=== PATIENT | male | born 1960 | race Two or more races ===

== ENCOUNTER → 2023-03-04 | Outpatient (CLI) | payer OTHER, SELFPAY ==
--- NOTE | 2023-03-04 08:00 | PROSBIL_PTH ---
PATHOLOGY RESULTS PATIENT: CHRISTOPHER GONZALES LOC: [facility] U#:[id number] AGE/SX: 62/M ROOM: RE03/04/[address]: Dr. Víctor Zepeda MD : 1960 BED: DIS: 03/04/2023 SPEC #: [id number] RECD: 03/05/23 08:48 STATUS: SYLVIA YVONNE #: [id number] TIMBO: 03/04/23 08:[address]: Víctor Zepeda DEPT: SURGICAL PATHOLOGY RECD BY: Samantha Qiu ENTERED: 03/05/23 08:48 SP TYPE: PROST BX JAZMINE DR: ERIS Lopez Tissues: PROSTATE RIGHT PROSTATE RIGHT PROSTATE RIGHT PROSTATE LEFT PROSTATE LEFT PROSTATE LEFT Procedures: PROSTATE BX HEADER OPERATION: Prostate biopsy PRE-OP DIAGNOSIS: Elevated PSA TISSUE SUBMITTED: A - Right apex, B - Right mid, C - Right base, D - Left apex, E - Left mid, F - Left base MICROSCOPIC DIAGNOSIS A. Right prostate, apex, core biopsy: A minute focus of prostatic adenocarcinoma. [place] grade: 3+3=6 Number of cores involved: 1/2 Proportion of tissue involved: <5% Perineural invasion: Not identified. Greatest tumor length: <0.1 cm Focal high-grade prostatic intraepithelial neoplasia (HGPIN). Focal mild chronic inflammation and minimal acute inflammation. See comment. B. Right prostate, mid, core biopsy: A minute focus of prostatic adenocarcinoma. [place] grade: 3+3=6 Number of cores involved: 1/2 Proportion of tissue involved: <5% Perineural invasion: Not identified. Greatest tumor length: <0.1 cm Focal high-grade prostatic intraepithelial neoplasia (HGPIN). See comment. C. Right prostate, base, core biopsy: Focal atypical small acinar proliferation (LEAH. See comment. D. Left prostate, apex, core biopsy: Focal atypical small acinar proliferation (LEAH. Focal mild chronic inflammation and minimal acute inflammation. See comment. E. Left prostate, mid, core biopsy: Prostatic tissue, negative for malignancy. F. Left prostate, base, core biopsy: Prostatic tissue, negative for malignancy. SJ:alley 03/06/2023 COMMENT A-D. Immunohistochemistry ([id number]) supports the above diagnosis. Case has been reviewed in consultation with Dr. Franklin who concurs with the above diagnosis. IDC:AM MICROSCOPIC DESCRIPTION Slides are reviewed. GROSS DESCRIPTION A - Received is one container designated prostate, right apex. The specimen consists of two elongated fragments of light villavicencio-white soft tissue each measuring1.1 cm in length and 0.1 cm in diameter. The specimen is totally submitted in one cassette. B - Received is one container designated prostate, right mid. The specimen consists of two elongated fragments of light villavicencio-white soft tissue each measuring 1.2 cm in length and 0.1 cm in diameter. The specimen is totally submitted in one cassette. C - Received is one container designated prostate, right base. The specimen consists of two elongated fragments of light villavicencio-white soft tissue measuring 0.8 and 1.1 cm in length and 0.1 cm in diameter. The specimen is totally submitted in one cassette. D - Received is one container designated prostate, left apex. The specimen consists of two elongated fragments of light villavicencio-white soft tissue each measuring 1.1 cm in length and 0.1 cm in diameter. The specimen is totally submitted in one cassette. E - Received is one container designated prostate, left mid. The specimen consists of two elongated fragments of light villavicencio-white soft tissue measuring 1.0 and 1.1 cm in length and 0.1 cm in diameter. The specimen is totally submitted in one cassette. F - Received is one container designated prostate, left base. The specimen consists of two elongated fragments of light villavicencio-white soft tissue measuring 0.6 and 1.5 cm in length and 0.1 cm in diameter. The specimen is totally submitted in one cassette. / SJ:rg 03/05/2023 TC:0 CPT: 48609 x6
--- NOTE | 2023-03-05 | IMM_PTH ---
PATHOLOGY RESULTS PATIENT: CHRISTOPHER GONZALES LOC: [facility] U#:[id number] AGE/SX: 62/M ROOM: RE03/04/[address]: Dr. Víctor Zepeda MD : 1960 BED: DIS: 03/04/2023 SPEC #: [id number] RECD: 03/06/23 10:54 STATUS: SYLVIA REHuma #: [id number] TIMBO: 03/05/23 00:[address]: Víctor Zepeda DEPT: IMMUNOHISTOCHEMISTRY RECD BY: Lexie De La Paz ENTERED: 03/06/23 10:57 SP TYPE: IMMUNO OTHR DR: ERIS Lopez Tissues: PROSTATE RIGHT PROSTATE RIGHT PROSTATE RIGHT PROSTATE LEFT Procedures: 34BE12 (add) P40 (add) P40 (initial) PHYSICIAN & INSTITUTION [place] [id number] SPECIMEN INFORMATION: Tissue Source: A - Right apex, B - Right mid, C - Right base, D - Left apex Clinical Info: Elevated PSA Specimen Number: [id number] A-D CPT code: 32171, 83294 x7 METHODOLOGY: Deparaffinized sections of prefer/formalin-fixed tissue or PAP/DQ stained slides are incubated with monoclonal/polyclonal antibodies/oligonucleotide probes. Localization is made via biotin free immunoperoxidase method. Appropriate controls are performed and reacted as expected. Results on target cell population are indicated in the following table: RESULTS: ANTIBODY / CLONE RESULT Block A P40 (BC28) negative 34BE12 (34BE12) negative Block B P40 (BC28) negative 34BE12 (34BE12) negative Block C P40 (BC28) negative 34BE12 (34BE12) negative Block D P40 (BC28) negative 34BE12 (34BE12) negative These tests were developed and their performance characteristics determined by [facility]. They may not have been cleared or approved by the U.[place]. Food and Drug Administration. The FDA has determined that such clearance or approval is not necessary. The above immunohistochemical/dualISH markers are ordered and reviewed by the Pathologist. INTERPRETATION: A. Right prostate, apex, core biopsy: A minute focus of adenocarcinoma. B. Right prostate, mid, core biopsy: A minute focus of adenocarcinoma. C. Right prostate, base, core biopsy: Atypical small acinar proliferation (LEAH). D. Left prostate, apex, core biopsy: Atypical small acinar proliferation (LEAH). SJ:alley 03/07/2023
== END | disposition home or self-care (01) ==
LOC: LABSPEC 16:58
PROVIDERS: Referring Provider Urology; Visit Provider Urology
DX: R97.20 Elevated prostate specific antigen [PSA] (principal)
CPT/HCPCS: 88305; 88341; 88342; G0416

== ENCOUNTER → 2023-09-15 | Outpatient (CLI) | payer OTHER, SELFPAY ==
[2023-09-15 08:26] LABS: PSA,Total- Diagnostic 4.18 ng/mL (0.0-4.0)
== END | disposition home or self-care (01) ==
PROVIDERS: Referring Provider Nurse Practitioner; Visit Provider Nurse Practitioner
DX: C61 Malignant neoplasm of prostate (principal)
CPT/HCPCS: 36415; 84153

== ENCOUNTER → 2024-03-26 | Outpatient (CLI) | payer MEDICARE, SELFPAY ==
[2024-03-26 09:17] LABS: PSA,Total- Diagnostic 5.14 ng/mL (0.0-4.0)
== END | disposition home or self-care (01) ==
PROVIDERS: Referring Provider Urology; Visit Provider Urology
DX: C61 Malignant neoplasm of prostate (principal)
CPT/HCPCS: 36415; 84153

== ENCOUNTER → 2024-10-20 | Outpatient (CLI) | payer MEDICARE, SELFPAY ==
--- OUTSIDE RECORDS SUMMARY | 2024-10-20 08:00 | XMS RPT_ITS | CCD ---
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 [facility] Comment on above: Performed By: #### 2 96777 #### [facility],[address] [place] [address] Albumin/Globulin [Mass ratio] 1.0 {ratio} Normal 0.9 - 1.6 [facility] Comment on above: Performed By: #### 2 14224 #### [address] [address] ALK PHOS 49 U/L Normal 46 - 116 [facility] Comment on above: Performed By: #### 2 77037 #### [facility],[address] [place] [address] ALT [Catalytic activity/Vol] 42 U/L Normal 16 - 63 U/L [facility]; [facility]. Comment on above: Performed By: #### 2 22911 #### [address] [address] Anion gap [Moles/Vol] 13 mmol/L Normal 10 - 20 mmol/L [facility].; [facility], [facility]. Comment on above: Performed By: #### 2 64516 #### [address] [address] AST [Catalytic activity/Vol] 26 U/L Normal 15 - 37 U/L [facility].; [facility], [facility]. Comment on above: Performed By: #### 2 87142 #### [address] [address] B/C RATIO 15 ratio Normal 0 - 30 [facility] Comment on above: Performed By: #### 2 34111 #### [address] [address] Bilirubin [Mass/Vol] 0.5 mg/dL Normal 0.2 - 1.0 mg/dL [facility], [facility].; [facility] Comment on above: Performed By: #### 2 36996 #### [facility],[address] [place], [place] [id number] Calcium [Mass/Vol] 9.1 mg/dL Normal 8.5 - 10. 1 mg/dL [facility], [facility].; [facility] Comment on above: Performed By: #### 2 43483 #### [place] [id number] Chloride [Moles/Vol] 104 mmol/L Normal 98 - 107 mmol/L [facility], [facility].; [facility] Comment on above: Performed By: #### 2 28444 #### [address] [address] CMP with eGFR Normal [facility] Comment on above: Result Comment: COMP REHENSIVE METABOLIC PANEL Performed By: #### 2 60632 #### [address] [address] CO2 [Moles/Vol] 26.4 mmol/L Normal 21.0 - 32.0 mmol/L [facility], [facility].; [facility] Comment on above: Performed By: #### 2 80031 #### [address] [address] Creatinine [Mass/Vol] 1.09 mg/dL Normal 0.70 - 1.30 mg/dL [facility], [facility].; [facility] Comment on above: Performed By: #### 2 25971 #### [facility],[address],[place] [address] GFR/1.73 sq M.predicted among non-blacks MDRD (S/P/Bld) [Vol rate/Area] mL/min/{1.73_m2} Normal 60 - 999 [facility] Comment on above: Performed By: #### 2 91326 #### [place] [address] Result Comment: ACCO RDING TO THE NATIONAL KIDNEY DISEASE EDUCATION PROGRAM(NKDE), A NORMAL eGFR IS A VALUE GREATER THAN OR EQUAL TO 60 ML/MIN/1.73 SQ METERS. CHRONIC KIDNEY DISEASE: <60mL/MIN/1.73 SQ METERS KIDNEY FAILURE: <15mL/MIN/1.73 SQ METERS THIS TEST SHOULD ONLY BE USED FOR PATIENTS 18 YEARS OF AGE AND OLDER. Globulin (S) [Mass/Vol] 3.7 g/dL Normal 1.5 - 3.8 g/dL [facility], [facility].; [facility], [facility]. Comment on above: Performed By: #### 2 57007 #### [address] [address] Glucose [Mass/Vol] 102 mg/dL Normal 74 - 106 mg/dL [facility], [facility].; [facility], [facility]. Comment on above: Performed By: #### 2 59190 #### [address] [address] Potassium [Moles/Vol] 4.0 mmol/L Normal 3.5 - 5.1 mmol/L [facility], [facility].; [facility], [facility]. Comment on above: Performed By: #### 2 15964 #### [address] [address] Protein [Mass/Vol] 7.5 g/dL Normal 6.4 - 8.2 g/dL [facility], [facility].; [facility], [facility]. Comment on above: Performed By: #### 2 86646 #### [address] [address] Sodium [Moles/Vol] 139 mmol/L Normal 136 - 145 mmol/L [facility].; [facility], [facility]. Comment on above: Performed By: #### 2 42255 #### [place] [id number] Urea nitrogen [Mass/Vol] 16 mg/dL Normal 7 - 18 mg/dL [facility], [facility].; [facility], [facility]. Comment on above: Performed By: #### 2 49916 #### [facility],[address] [place], [place] [id number] LIPID PROFILEon 01-08-2024 Cholesterol [Mass/Vol] 194 mg/dL Normal 0 - 240 mg/dL [facility].; [facility], [facility]. Comment on above: Performed By: #### 2 08546 #### [address] [address] Cholesterol in HDL [Mass/Vol] 42 mg/dL Normal 40 - 60 [facility] Comment on above: Performed By: #### 2 65069 #### [address] [address] Cholesterol in LDL [Mass/Vol] 112 mg/dL Normal 0 - 129 mg/dL [facility], [facility].; [facility], [facility]. Comment on above: Performed By: #### 2 32780 #### [address] [address] Cholesterol.total/C holesterol in HDL [Mass ratio] 4.6 {ratio} Normal 0.0 - 5.0 [facility].; [facility], [facility]. Comment on above: Performed By: #### 2 48756 #### [address] [address] Lipid 1996 panel Normal [facility] Comment on above: Result Comment: LIPI D PROFILE Performed By: #### 2 70382 #### [address] [address] Triglyceride [Mass/Vol] 198 mg/dL Abnormal 0 - 150 mg/dL [facility] [employer] [facility] Comment on above: Performed By: #### 2 10201 #### [facility],[address] [place] [address] Laboratory - Chemistry and C hemistry - challengeon 01-08-2024 Albumin [Mass/Vol] 1.0 g/dL Normal 0.9 - 1.6 [facility], [facility].; [facility] ALP [Catalytic activity/Vol] 49 U/L Normal 46 - 116 U/L [facility], [facility].; [facility] Cholesterol in HDL [Mass or moles/Vol] 42 mg/dL Normal 40 - 60 mg/dL [facility], [facility].; [facility] Comprehensive metabolic 2000 panel CMP with eGFR Normal [facility], [facility].; [facility] GFR/1.73 sq M.predicted among blacks MDRD (S/P/Bld) [Vol rate/Area] mL/min/{1.73_m2} Normal 60 - 999 {ML/MINUTE} [facility] GFR/1.73 sq M.predicted MDRD (S/P/Bld) [Vol rate/Area] mL/min/{1.73_m2} Normal 60 - 999 {ML/MINUTE} [facility] [employer] [facility] Lipid 1996 panel LIPID PROFILE Normal [facility], [facility].; [facility] Prostate specific Ag [Mass/Vol] 5.16 ng/mL Abnormal 0.00 - 4.00 ng/mL [facility], [facility].; [facility] Urea nitrogen/Creatinine [Mass ratio] 15 {ratio} Normal 0 - 30 {ratio} [facility] [employer] [employer] No Panel Informationon 01-07 AGE 63 {years} Normal [facility] PSA,Total- Diagnosticon 08-0 PSA, DIAGNOSTIC 4.18 ng/mL High 0.0-4.0 [facility] Comment on above: Result Comment: This test was performed using the TPSA assay method for the [employer] chemistry system. Values obtained with different assay methods cannot be used interchangably. When changing PSA assays in the course of monitoring a patient, additional sequential testing should be carried out to confirm baseline values. Performed By: #### L [phone] #### [facility] [address] [place], [address] Laboratory - Chemistry and C hemistry - challengeon 02-09-2023 Prostate specific Ag [Mass/Vol] 5.12 ng/mL Abnormal 0.00 - 4.00 ng/mL [facility], [facility].; [facility], [facility]. Laboratory - Chemistry and C hemistry - challengeon 12-29-2022 Albumin [Mass/Vol] 3.5 g/dL Normal 3.4 - 5.0 g/dL [facility], [facility].; [facility] Albumin [Mass/Vol] 0.9 g/dL Normal 0.9 - 1.6 [facility], [facility].; [facility] ALP [Catalytic activity/Vol] 50 U/L Normal 46 - 116 U/L [facility], [facility].; [facility] ALT [Catalytic activity/Vol] 34 U/L Normal 16 - 63 U/L [facility], [facility].; [facility] [employer] ALT No additional P-5'-P [Catalytic activity/Vol] 34 U/L Normal 16 - 63 U/L [facility], [facility].; [facility] [employer] Anion gap [Moles/Vol] 14 mmol/L Normal 10 - 20 mmol/L [facility], [facility].; [facility] [employer] AST [Catalytic activity/Vol] 21 U/L Normal 15 - 37 U/L [facility], [facility].; [employer] [employer] Bilirubin [Mass/Vol] 0.4 mg/dL Normal 0.2 - 1.0 mg/dL [facility], [facility].; [facility] Calcium [Mass/Vol] 8.6 mg/dL Normal 8.5 - 10. 1 mg/dL [facility], [facility].; [facility] [employer] Chloride [Moles/Vol] 101 mmol/L Normal 98 - 107 mmol/L [facility].; [facility], [facility]. Cholesterol [Mass/Vol] 184 mg/dL Normal 0 - 240 mg/dL [facility].; [facility], [facility]. Cholesterol in HDL [Mass or moles/Vol] 42 mg/dL Normal 40 - 60 mg/dL [facility], [facility] Cholesterol in LDL [Mass/Vol] 106 mg/dL Normal 0 - 129 mg/dL [facility].; [facility], [facility] Cholesterol.total/C holesterol in HDL [Mass ratio] 4.4 {ratio} Normal 0.0 - 5.0 [facility]; [facility], [facility] CO2 [Moles/Vol] 24.0 mmol/L Normal 21.0 - 32.0 mmol/L [facility], [facility].; [facility], [facility] Comprehensive metabolic 2000 panel CMP with eGFR Normal [facility]; [facility], [facility] Creatinine [Mass/Vol] 0.87 mg/dL Normal 0.70 - 1.30 mg/dL [facility].; [facility], [facility]. GFR/1.73 sq M.predicted among blacks MDRD (S/P/Bld) [Vol rate/Area] mL/min/{1.73_m2} Normal 60 - 999 {ML/MINUTE} [facility], [facility].; [facility], [facility]. GFR/1.73 sq M.predicted MDRD (S/P/Bld) [Vol rate/Area] mL/min/{1.73_m2} Normal 60 - 999 {ML/MINUTE} [facility], [facility].; [facility], [facility]. Globulin (S) [Mass/Vol] 3.7 g/dL Normal 1.5 - 3.8 g/dL [facility].; [facility] Glucose [Mass/Vol] 92 mg/dL Normal 74 - 106 mg/dL [facility], [facility].; [facility], [facility] Lipid 1996 panel LIPID PROFILE Normal [facility], [facility].; [facility], [facility] Potassium [Moles/Vol] 4.1 mmol/L Normal 3.5 - 5.1 mmol/L [facility], [facility].; [facility], [facility] Prostate specific Ag [Mass/Vol] 4.66 ng/mL Abnormal 0.00 - 4.00 ng/mL [facility].; [facility], [facility] Protein [Mass/Vol] 7.2 g/dL Normal 6.4 - 8.2 g/dL [facility].; [facility], [facility] Sodium [Moles/Vol] 135 mmol/L Abnormal 136 - 145 mmol/L [facility].; [facility], [facility] Triglyceride [Mass/Vol] 181 mg/dL Abnormal 0 - 150 mg/dL [facility].; [facility], [facility]. Urea nitrogen [Mass/Vol] 20 mg/dL Abnormal 7 - 18 mg/dL [facility].; [facility], [facility] Urea nitrogen/Creatinine [Mass ratio] 23 {ratio} Normal 0 - 30 {ratio} [facility].; [facility] [employer], [facility] No Panel Informationon 12-29 AGE 62 {years} Normal [facility]; [facility] COMPREHENSIVE METABOLIC PANE [facility] 09-27-2021 Albumin [Mass/Vol] 4.5 g/dL Normal 3.6-5.1 [facility] Comment on above: Performed By: #### 1 023, 7599, 5363 #### [facility] [address] [employer] Chef: Mauro Russ MD Albumin/Globulin [Mass ratio] 1.7 {ratio} Normal 1.0-2.5 [facility] Comment on above: Performed By: #### 1 023, 0, 5363 #### [facility] [address] [employer]: Mauro Russ MD ALP [Catalytic activity/Vol] 37 U/L Normal 35-144 [facility] Comment on above: Performed By: #### 1 0231, 2630, 5363 #### [facility] [address] [place] [address] [employer]: Mauro Russ MD ALT [Catalytic activity/Vol] 25 U/L Normal 9-46 [facility] Comment on above: Performed By: #### 1 0231, 7600, 5363 #### [facility] of [address], [address] [place] [address] [employer]: Mauro Russ MD AST [Catalytic activity/Vol] 22 U/L Normal 10-35 [facility] Comment on above: Performed By: #### 1 0231, 7599, 5363 #### [facility] of [address], [address] [place] [address] [employer]: Mauro Russ MD Bilirubin [Mass/Vol] 0.5 mg/dL Normal 0.2-1.2 [facility] Comment on above: Performed By: #### 1 023, 7599, 5363 #### [facility] of [address], [address] [place] [address] [employer]: Mauro Russ MD BUN/CREATININE RATIO NOT APPLICABLE Normal 6-22 [facility] Comment on above: Performed By: #### 1 023, 7599, 5363 #### [facility] of [address], [address] [place] [address] [employer]: Mauro Russ MD Calcium [Mass/Vol] 9.3 mg/dL Normal 8.6-10.3 [facility] Comment on above: Performed By: #### 1 023, 7599, 5363 #### [facility] of [address], [address] [place] [address] [employer]: Mauro Russ MD Chloride [Moles/Vol] 106 mmol/L Normal 98-110 [facility] Comment on above: Performed By: #### 1 023, 7600, 5363 #### [facility] of [address], [address] [place] [address] [employer]: Mauro Russ MD CO2 [Moles/Vol] 21 mmol/L Normal 20-32 [facility] Comment on above: Performed By: #### 1 023, 0, 5363 #### [facility] [address], [address] [place] [address] [employer]: Mauro Russ MD Creatinine [Mass/Vol] 0.88 mg/dL Normal 0.70-1.35 [facility] Comment on above: Performed By: #### 1 023, 7599, 5363 #### [facility] [address], [address] [place] [address] [employer]: Mauro Russ MD GFR/1.73 sq M.predicted among non-blacks MDRD (S/P/Bld) [Vol rate/Area] 97 mL/min/{1.73_m2} Normal > OR = 60 [facility] Comment on above: Result Comment: The eGFR is based on the CKD-EPI 2020 equation. To calculate the new eGFR from a previous Creatinine or Cystatin C result, go to https://www.kidney.org/professionals/ kdoqi/gfr%5Fcalculator Performed By: #### 1 023, 7599, 5363 #### [facility] [place] [address] [employer]: Mauro Russ MD Globulin (S) [Mass/Vol] 2.6 g/dL Normal 1.9-3.7 [facility] Comment on above: Performed By: #### 1 023, 7599, 5363 #### [facility] [place] [address] [employer]: Mauro Russ MD Glucose [Mass/Vol] 94 mg/dL Normal 65-99 [facility] Comment on above: Result Comment: Fasting reference interval Performed By: #### 1 023, 7599, 5363 #### [facility] [place] [address] [employer]: Mauro Russ MD Potassium [Moles/Vol] 5.0 mmol/L Normal 3.5-5.3 [facility] Comment on above: Performed By: #### 1 0231, 0, 5363 #### [facility] of [address], [address] [place] [address] [employer]: Mauro Russ MD Protein [Mass/Vol] 7.1 g/dL Normal 6.1-8.1 [facility] Comment on above: Performed By: #### 1 0231, 0, 5363 #### [facility] of [address], [address] [place] [address] [employer]: Mauro Russ MD Sodium [Moles/Vol] 138 mmol/L Normal 135-146 [facility] Comment on above: Performed By: #### 1 0231, 0, 5363 #### [facility] of [address], [address] [place] [address] [employer]: Mauro Russ MD Urea nitrogen [Mass/Vol] 19 mg/dL Normal 7-25 [facility] Comment on above: Performed By: #### 1 0231, 7599, 5363 #### [facility] of [address], [address] [place] [address] [employer]: Mauro Russ MD LIPID PANEL, [facility] 09-10 Cholesterol [Mass/Vol] 201 mg/dL High <200 [facility] Comment on above: Performed By: #### 1 0231, 7599, 5363 #### [facility] of [place] [address] [employer]: Mauro Russ MD Cholesterol in HDL [Mass/Vol] 46 mg/dL Normal > OR = 40 [facility] Comment on above: Performed By: #### 1 0231, 0, 5363 #### [facility] of [place] [address] [employer]: Mauro Russ MD Cholesterol in LDL [Mass/Vol] 129 mg/dL High [facility] Comment on above: Result Comment: Refe rence range: <100 Desirable range <100 mg/dL for primary prevention; <70 mg/dL for patients with CHD or diabetic patients with > or = 2 CHD risk factors. LDL-C is now calculated using the Elvira calculation, which is a validated novel method providing better accuracy than the Friedewald equation in the estimation of LDL-C. Lester ALLEN et al. ARTURO. 2013;310(19): 8023-5824 (http://education.Midisolaire/faq/FPB453) Performed By: #### 1 230, 0, 5363 #### [facility] [address], [address] [place] [address] [employer]: Mauro Russ MD Cholesterol.total/C holesterol in HDL [Mass ratio] 4.4 {ratio} Normal <5.0 [facility] Comment on above: Performed By: #### 1 230, 7599, 5363 #### [facility] [place] [address] [employer]: Mauro Russ MD NON HDL CHOLESTEROL 155 mg/dL (calc) High <130 [facility] Comment on above: Result Comment: For patients with diabetes plus 1 major ASCVD risk factor, treating to a non-HDL-C goal of <100 mg/dL (LDL-C of <70 mg/dL) is considered a therapeutic option. Performed By: #### 1 230, 7599, 5363 #### [facility] [place] [address] [employer]: Mauro Russ MD Triglyceride [Mass/Vol] 143 mg/dL Normal <150 [facility] Comment on above: Performed By: #### 1 023, 7599, 5363 #### [facility] [place] [address] [employer]: Mauro Russ MD PSA, TOTALon 09-27-2021 PSA, TOTAL 3.33 ng/mL Normal < OR = 4.00 [facility] Comment on above: Result Comment: The total PSA value from this assay system is standardized against the WHO standard. The test result will be approximately 20% lower when compared to the equimolar-standardized total PSA ([place]). Comparison of serial PSA results should be interpreted with this fact in mind. This test was performed using the Siemens chemiluminescent method. Values obtained from different assay methods cannot be used interchangeably. PSA levels, regardless of value, should not be interpreted as absolute evidence of the presence or absence of disease. Performed By: #### 1 4441, 9840, 5396 #### [facility] [address], [address] [place] [address] [employer]: Mauro Russ MD Laboratory - Chemistry and C hemistry - challengeon 09-26-2021 Albumin [Mass/Vol] 4.5 g/dL Normal 3.6 - 5.1 g/dL [facility], [facility].; [facility] Albumin/Globulin [Mass ratio] 1.7 {ratio} Normal 1.0 - 2.5 [facility], [facility].; [employer] ALP [Catalytic activity/Vol] 37 U/L Normal 35 - 144 U/L [facility], [facility].; [facility] [employer] ALT [Catalytic activity/Vol] 25 U/L Normal 9 - 46 U/L [facility], [facility].; [employer] AST [Catalytic activity/Vol] 22 U/L Normal 10 - 35 U/L [facility] [employer], [facility].; [employer] [employer] Bilirubin [Mass/Vol] 0.5 mg/dL Normal 0.2 - 1.2 mg/dL [facility] [employer], [facility].; [employer] Calcium [Mass/Vol] 9.3 mg/dL Normal 8.6 - 10. 3 mg/dL [facility] [employer], [facility].; [employer] Chloride [Moles/Vol] 106 mmol/L Normal 98 - 110 mmol/L [facility] [employer] [employer] [employer] Cholesterol [Mass/Vol] 201 mg/dL Abnormal [employer] [employer] [employer] [employer] Cholesterol in HDL [Mass/Vol] 46 mg/dL Normal [facility] [employer] [employer] [employer] Cholesterol in LDL [Mass/Vol] 129 mg/dL Abnormal [facility] [employer] [employer] CO2 [Moles/Vol] 21 mmol/L Normal 20 - 32 mmol/L [facility].; [facility] Creatinine [Mass/Vol] 0.88 mg/dL Normal 0.70 - 1.35 mg/dL [facility]; [facility], [facility] GFR/1.73 sq M.predicted among non-blacks MDRD (S/P/Bld) [Vol rate/Area] 97 mL/min/{1.73_m2} Normal [facility]; [facility], [facility] Glucose [Mass/Vol] 94 mg/dL Normal 65 - 99 mg/dL [facility], [facility] Potassium [Moles/Vol] 5.0 mmol/L Normal 3.5 - 5.3 mmol/L [facility]; [facility], [facility] Protein [Mass/Vol] 7.1 g/dL Normal 6.1 - 8.1 g/dL [facility]; [facility], [facility] Sodium [Moles/Vol] 138 mmol/L Normal 135 - 146 mmol/L [facility]; [facility] Triglyceride [Mass/Vol] 143 mg/dL Normal [facility]; [facility] Urea nitrogen [Mass/Vol] 19 mg/dL Normal 7 - 25 mg/dL [facility]; [facility] No Panel Informationon 09-26 BUN/CREATININE RATIO NOT APPLICABLE Normal 6 - 22 [facility]; [facility] CHOL/HDLC RATIO 4.4 Normal [facility]; [facility] GLOBULIN 2.6 Normal 1.9 - 3.7 [facility]; [facility], [facility] NON HDL CHOLESTEROL 155 Abnormal [facility]; [facility], [facility] PSA, TOTAL 3.33 ng/mL Normal [facility]; [place] [employer] [facility], [facility] Laboratory - Chemistry and C hemistry - challengeon 09-10-2020 Albumin [Mass/Vol] 3.8 g/dL Normal 3.4 - 5.0 g/dL [facility]; [facility], [facility]. Albumin [Mass/Vol] 1.1 g/dL Normal 0.9 - 1.6 [facility], [facility]. ALP [Catalytic activity/Vol] 44 U/L Abnormal 46 - 116 U/L [facility].; [facility], [facility]. ALT [Catalytic activity/Vol] 30 U/L Normal 16 - 63 U/L [facility].; [facility], [facility]. ALT No additional P-5'-P [Catalytic activity/Vol] 30 U/L Normal 16 - 63 U/L [facility].; [facility], [facility]. Anion gap [Moles/Vol] 12 mmol/L Normal 10 - 20 mmol/L [facility].; [facility], [facility]. AST [Catalytic activity/Vol] 20 U/L Normal 15 - 37 U/L [facility], [facility].; [facility], [facility]. Bilirubin [Mass/Vol] 0.7 mg/dL Normal 0.2 - 1.0 mg/dL [facility].; [facility], [facility]. Calcium [Mass/Vol] 8.4 mg/dL Abnormal 8.5 - 10. 1 mg/dL [facility].; [facility], [facility]. Chloride [Moles/Vol] 104 mmol/L Normal 98 - 107 mmol/L [facility].; [facility], [facility]. Cholesterol [Mass/Vol] 174 mg/dL Normal 0 - 240 mg/dL [facility].; [facility], [facility]. Cholesterol in HDL [Mass or moles/Vol] 38 mg/dL Abnormal 40 - 60 mg/dL [facility], [facility]. Cholesterol in LDL [Mass/Vol] 105 mg/dL Normal 0 - 129 mg/dL [facility].; [facility], [facility]. Cholesterol.total/C holesterol in HDL [Mass ratio] 4.6 {ratio} Normal 0.0 - 5.0 [facility], [facility].; [facility], [facility]. CO2 [Moles/Vol] 26.1 mmol/L Normal 21.0 - 32.0 mmol/L [facility].; [facility]. Comprehensive metabolic 2000 panel CMP with eGFR Normal [facility].; [facility], [facility] Creatinine [Mass/Vol] 1.01 mg/dL Normal 0.70 - 1.30 mg/dL [facility], [facility].; [facility], [facility]. GFR/1.73 sq M.predicted among blacks MDRD (S/P/Bld) [Vol rate/Area] mL/min/{1.73_m2} Normal 60 - 999 {ML/MINUTE} [facility], [facility].; [facility], [facility]. GFR/1.73 sq M.predicted MDRD (S/P/Bld) [Vol rate/Area] mL/min/{1.73_m2} Normal 60 - 999 {ML/MINUTE} [facility], [facility].; [facility], [facility]. Globulin (S) [Mass/Vol] 3.5 g/dL Normal 1.5 - 3.8 g/dL [facility].; [facility], [facility]. Glucose [Mass/Vol] 105 mg/dL Normal 74 - 106 mg/dL [facility], [facility].; [facility], [facility]. Lipid 1996 panel LIPID PROFILE Normal [facility]; [facility], [facility] Potassium [Moles/Vol] 3.9 mmol/L Normal 3.5 - 5.1 mmol/L [facility], [facility].; [facility], [facility] Prostate specific Ag [Mass/Vol] 3.25 ng/mL Normal 0.00 - 4.00 ng/mL [facility].; [facility], [facility] Protein [Mass/Vol] 7.3 g/dL Normal 6.4 - 8.2 g/dL [facility], [facility].; [facility], [facility] Sodium [Moles/Vol] 138 mmol/L Normal 136 - 145 mmol/L [facility], [facility].; [facility], [facility]. Triglyceride [Mass/Vol] 153 mg/dL Abnormal 0 - 150 mg/dL [facility], [facility].; [facility], [facility] Urea nitrogen [Mass/Vol] 15 mg/dL Normal 7 - 18 mg/dL [facility].; [employer] Urea nitrogen/Creatinine [Mass ratio] 15 {ratio} Normal 0 - 30 {ratio} [employer] No Panel Informationon 09-10 AGE 59 {years} Normal [employer].; [employer] Laboratory - Chemistry and C hemistry - challengeon 07-03-2020 Creatinine [Mass/Vol] 0.85 mg/dL Normal 0.70 - 1.25 mg/dL [place] [facility].; [employer]. GFR/1.73 sq M.predicted among blacks MDRD (S/P/Bld) [Vol rate/Area] 109 mL/min/{1.73_m2} Normal [place] [employer] [facility].; [employer]. No Panel Informationon 07-03 eGFR NON-AFR. [place] 89 Normal [employer].; [employer] Laboratory - Chemistry and C hemistry - challengeon 06-28-2020 Bilirubin Ql (U) Negative [facility] [employer]. Ketones Ql (U) Negative Normal [facility].; [employer] pH (U) 5.0 [pH] Abnormal [employer].; [employer] Specific gravity (U) [Rel density] 1.025 Normal [employer].; [employer] Urobilinogen Qn (U) 0.2 mg/dL Normal [facility].; [employer]. Laboratory - Hematology and Cell countson 06-28-2020 Hemoglobin Ql (U) Negative Normal [employer].; [employer] Laboratory - Specimen inform ationon 06-28-2020 Appearance (U) Clear Normal [facility] [employer].; [employer] Color (U) Yellow Normal [employer].; [employer] Laboratory - Urinalysison Glucose Test strip (U) [Mass/Vol] Negative Normal [employer].; [employer] Leukocyte esterase Test strip Ql (U) Negative Normal [facility].; [facility], [facility] Nitrite Ql (U) Negative Normal [facility].; [facility] Protein Ql (U) Negative Normal [facility].; [facility], [facility]. Laboratory - Chemistry and C hemistry - challengeon 07-10-2019 Albumin [Mass/Vol] 4.4 g/dL Normal 3.4 - 4.8 g/dL [facility]; [facility], [facility] Albumin [Mass/Vol] 1.5 g/dL Normal 0.9 - 1.6 [facility].; [facility] ALP [Catalytic activity/Vol] 34 U/L Abnormal 38 - 126 U/L [facility].; [facility], [facility]. ALT [Catalytic activity/Vol] 26 U/L Normal 10 - 40 U/L [facility].; [facility], [facility]. ALT No additional P-5'-P [Catalytic activity/Vol] 26 U/L Normal 10 - 40 U/L [facility].; [facility], [facility]. Anion gap [Moles/Vol] 13 mmol/L Normal 10 - 20 mmol/L [facility].; [facility], [facility]. AST [Catalytic activity/Vol] 19 U/L Normal 13 - 39 U/L [facility].; [facility], [facility]. Bilirubin [Mass/Vol] 0.5 mg/dL Normal 0.0 - 1.5 mg/dL [facility].; [facility], [facility]. Calcium [Mass/Vol] 9.2 mg/dL Normal 8.6 - 10. 2 mg/dL [facility].; [facility], [facility]. Chloride [Moles/Vol] 105 mmol/L Normal 98 - 107 mmol/L [facility].; [facility], [facility]. Cholesterol [Mass/Vol] 187 mg/dL Normal 0 - 200 mg/dL [facility].; [facility], [facility]. Cholesterol in HDL [Mass or moles/Vol] 38 mg/dL Abnormal 40 - 60 mg/dL [facility]; [facility], [facility] Cholesterol in LDL [Mass/Vol] 126 mg/dL Normal 0 - 129 mg/dL [facility]; [facility] Cholesterol.total/C holesterol in HDL [Mass ratio] 4.9 {ratio} Normal 0.0 - 5.0 [facility]; [facility], [facility] CO2 [Moles/Vol] 23.3 mmol/L Normal 21.0 - 31.0 mmol/L [facility]; [facility], [facility] Comprehensive metabolic 2000 panel CMP with eGFR Normal [facility]; [facility], [facility] Creatinine [Mass/Vol] 0.8 mg/dL Normal 0.7 - 1.3 mg/dL [facility]; [facility], [facility]. GFR/1.73 sq M.predicted among blacks MDRD (S/P/Bld) [Vol rate/Area] mL/min/{1.73_m2} Normal 60 - 999 {ML/MINUTE} [facility].; [facility], [facility]. GFR/1.73 sq M.predicted MDRD (S/P/Bld) [Vol rate/Area] mL/min/{1.73_m2} Normal 60 - 999 {ML/MINUTE} [facility].; [facility], [facility]. Globulin (S) [Mass/Vol] 2.9 g/dL Normal 1.5 - 3.8 g/dL [facility].; [facility], [facility]. Glucose [Mass/Vol] 94 mg/dL Normal 74 - 106 mg/dL [facility]; [facility], [facility] Lipid 1996 panel LIPID PROFILE Normal [facility]; [facility], [facility] Potassium [Moles/Vol] 4.0 mmol/L Normal 3.5 - 5.1 mmol/L [facility]; [facility], [facility] Prostate specific Ag [Mass/Vol] 3.24 ng/mL Normal 0.00 - 4.00 ng/mL [facility].; [facility], [facility] Protein [Mass/Vol] 7.3 g/dL Normal 6.4 - 8.3 g/dL [facility], [facility].; [place] [employer]. Sodium [Moles/Vol] 137 mmol/L Normal 136 - 145 mmol/L [facility].; [place] [employer], [employer]. Triglyceride [Mass/Vol] 116 mg/dL Normal 0 - 150 mg/dL [facility], [facility].; [place] [employer], [employer]. Urea nitrogen [Mass/Vol] 18 mg/dL Normal 6 - 20 mg/dL [facility].; [place] [employer], [employer]. Urea nitrogen/Creatinine [Mass ratio] 23 {ratio} Normal 0 - 30 {ratio} [facility] [employer], [employer]. No Panel Informationon 07-09 AGE 58 {years} Normal [place] [employer] [facility].; [employer], [employer]. Laboratory - Chemistry and C hemistry - challengeon 05-23-2018 Albumin [Mass/Vol] 4.5 g/dL Normal 3.6 - 5.1 g/dL [facility], [facility].; [place] [employer] Albumin/Globulin [Mass ratio] 1.7 {ratio} Normal 1.0 - 2.5 [place] [employer].; [employer], [employer]. ALP [Catalytic activity/Vol] 51 U/L Normal 40 - 115 U/L [facility].; [employer], [employer]. ALT [Catalytic activity/Vol] 22 U/L Normal 9 - 46 U/L [facility].; [employer], [employer]. AST [Catalytic activity/Vol] 19 U/L Normal 10 - 35 U/L [place] [employer] [facility].; [employer], [employer]. Bilirubin [Mass/Vol] 0.6 mg/dL Normal 0.2 - 1.2 mg/dL [place] [employer], [employer].; [employer], [employer]. Calcium [Mass/Vol] 9.5 mg/dL Normal 8.6 - 10. 3 mg/dL [place] [facility], [employer].; [employer], [employer]. Chloride [Moles/Vol] 104 mmol/L Normal 98 - 110 mmol/L [facility].; [employer], [employer]. Cholesterol [Mass/Vol] 182 mg/dL Normal [facility].; [facility], [facility]. Cholesterol in HDL [Mass/Vol] 44 mg/dL Normal [facility].; [facility], [facility]. Cholesterol in LDL [Mass/Vol] 109 mg/dL Abnormal 0 - 100 mg/dL [facility].; [facility], [facility]. Cholesterol non HDL [Mass/Vol] 138 mg/dL Abnormal [facility].; [facility], [facility]. Cholesterol.total/C holesterol in HDL [Mass ratio] 4.1 {ratio} Normal [facility].; [facility], [facility] CO2 [Moles/Vol] 26 mmol/L Normal 20 - 32 mmol/L [facility].; [facility], [facility]. Creatinine [Mass/Vol] 0.92 mg/dL Normal 0.70 - 1.33 mg/dL [facility].; [facility], [facility]. GFR/1.73 sq M.predicted among blacks MDRD (S/P/Bld) [Vol rate/Area] 105 {ML/MIN/1.73M2} Normal [facility], [facility].; [facility], [facility]. GFR/1.73 sq M.predicted MDRD (S/P/Bld) [Vol rate/Area] 91 {ML/MIN/1.73M2} Normal [facility], [facility].; [facility], [facility]. Globulin (S) [Mass/Vol] 2.7 g/dL Normal 1.9 - 3.7 g/dL [facility].; [facility], [facility]. Glucose [Mass/Vol] 102 mg/dL Abnormal 65 - 99 mg/dL [facility].; [facility], [facility]. Potassium [Moles/Vol] 4.5 mmol/L Normal 3.5 - 5.3 mmol/L [facility].; [facility], [facility]. Protein [Mass/Vol] 7.2 g/dL Normal 6.1 - 8.1 g/dL [facility]; [facility], [facility] Sodium [Moles/Vol] 136 mmol/L Normal 135 - 146 mmol/L [facility], [facility].; [facility], [employer] Triglyceride [Mass/Vol] 170 mg/dL Abnormal [facility], [facility].; [facility], [facility]. Urea nitrogen [Mass/Vol] 14 mg/dL Normal 7 - 25 mg/dL [facility], [facility].; [facility], [facility]. Urea nitrogen/Creatinine [Mass ratio] 15.5 mg/mg Normal 6 - 22 [facility], [facility].; [place] [facility], [facility]. Laboratory - Chemistry and C hemistry - challengeon 07-12-2017 Albumin [Mass/Vol] 4.4 g/dL Normal 3.6 - 5.1 g/dL [facility], [facility].; [facility], [facility]. Albumin/Globulin [Mass ratio] 1.5 {ratio} Normal 1.0 - 2.5 [facility], [facility].; [facility], [facility]. ALP [Catalytic activity/Vol] 46 U/L Normal 40 - 115 U/L [facility], [facility].; [facility], [facility]. ALT [Catalytic activity/Vol] 26 U/L Normal 9 - 46 U/L [facility], [facility].; [place] [employer], [facility]. AST [Catalytic activity/Vol] 19 U/L Normal 10 - 35 U/L [facility], [facility].; [place] [facility], [facility]. Bilirubin [Mass/Vol] 0.6 mg/dL Normal 0.2 - 1.2 mg/dL [facility], [facility].; [place] [facility], [facility] Calcium [Mass/Vol] 9.2 mg/dL Normal 8.6 - 10. 3 mg/dL [facility], [facility].; [facility], [facility]. Chloride [Moles/Vol] 104 mmol/L Normal 98 - 110 mmol/L [facility], [facility].; [place] [employer], [facility]. Cholesterol [Mass/Vol] 197 mg/dL Normal [facility], [facility].; [place] [facility], [employer] Cholesterol in HDL [Mass/Vol] 40 mg/dL Abnormal [facility], [facility].; [place] [facility], [employer] Cholesterol in LDL [Mass/Vol] 129 mg/dL Abnormal 0 - 100 mg/dL [facility], [facility].; [place] [employer] Cholesterol non HDL [Mass/Vol] 156 mg/dL Abnormal [facility].; [facility], [facility]. Cholesterol.total/C holesterol in HDL [Mass ratio] 4.9 {ratio} Normal [facility].; [facility], [facility] CO2 [Moles/Vol] 25 mmol/L Normal 20 - 31 mmol/L [facility], [facility].; [facility], [facility] Creatinine [Mass/Vol] 0.87 mg/dL Normal 0.70 - 1.33 mg/dL [facility].; [facility], [facility]. GFR/1.73 sq M.predicted among blacks MDRD (S/P/Bld) [Vol rate/Area] 110 {ML/MIN/1.73M2} Normal [facility], [facility]. GFR/1.73 sq M.predicted MDRD (S/P/Bld) [Vol rate/Area] 95 {ML/MIN/1.73M2} Normal [facility].; [facility], [facility]. Globulin (S) [Mass/Vol] 2.8 g/dL Normal 1.9 - 3.7 g/dL [facility].; [facility], [facility]. Glucose [Mass/Vol] 96 mg/dL Normal 65 - 99 mg/dL [facility].; [facility], [facility]. Potassium [Moles/Vol] 4.6 mmol/L Normal 3.5 - 5.3 mmol/L [facility], [facility].; [facility], [facility]. Prostate specific Ag [Mass/Vol] 2.1 ng/mL Normal [facility].; [facility], [facility]. Protein [Mass/Vol] 7.2 g/dL Normal 6.1 - 8.1 g/dL [facility].; [facility], [facility]. Sodium [Moles/Vol] 137 mmol/L Normal 135 - 146 mmol/L [facility], [facility].; [facility], [facility]. Triglyceride [Mass/Vol] 161 mg/dL Abnormal [facility], [facility].; [facility], [facility]. Urea nitrogen [Mass/Vol] 16 mg/dL Normal 7 - 25 mg/dL [facility], [facility].; [facility], [employer] Urea nitrogen/Creatinine [Mass ratio] 18.9 mg/mg Normal 6 - 22 [facility].; [facility]. Laboratory - Chemistry and C hemistry - challengeon 05-18-2016 Albumin [Mass/Vol] 4.5 g/dL Normal 3.6 - 5.1 g/dL [facility].; [facility], [facility] Albumin/Globulin [Mass ratio] 1.5 {ratio} Normal 1.0 - 2.5 [facility].; [facility], [facility]. ALP [Catalytic activity/Vol] 40 U/L Normal 40 - 115 U/L [facility].; [facility], [facility]. ALT [Catalytic activity/Vol] 29 U/L Normal 9 - 46 U/L [facility].; [facility], [facility]. AST [Catalytic activity/Vol] 19 U/L Normal 10 - 35 U/L [facility].; [facility], [facility] Bilirubin [Mass/Vol] 0.7 mg/dL Normal 0.2 - 1.2 mg/dL [facility].; [place] [employer] [facility]. Calcium [Mass/Vol] 9.4 mg/dL Normal 8.6 - 10. 3 mg/dL [facility].; [facility], [facility]. Chloride [Moles/Vol] 106 mmol/L Normal 98 - 110 mmol/L [facility].; [facility], [facility]. Cholesterol [Mass/Vol] 207 mg/dL Abnormal 125 - 200 mg/dL [facility].; [facility], [facility]. Cholesterol in HDL [Mass/Vol] 43 mg/dL Normal [facility].; [facility], [facility]. Cholesterol in LDL [Mass/Vol] 137 mg/dL Abnormal [facility].; [facility], [facility]. Cholesterol non HDL [Mass/Vol] 164 mg/dL Abnormal [facility].; [place] [employer], [facility]. Cholesterol.total/C holesterol in HDL [Mass ratio] 4.8 {ratio} Normal [facility].; [place] [employer] [facility]. CO2 [Moles/Vol] 25 mmol/L Normal 20 - 31 mmol/L [facility].; [facility], [facility]. Creatinine [Mass/Vol] 0.86 mg/dL Normal 0.70 - 1.33 mg/dL [facility].; [facility], [facility]. GFR/1.73 sq M.predicted among blacks MDRD (S/P/Bld) [Vol rate/Area] 112 {ML/MIN/1.73M2} Normal [facility], [facility] GFR/1.73 sq M.predicted MDRD (S/P/Bld) [Vol rate/Area] 96 {ML/MIN/1.73M2} Normal [facility]; [facility], [facility] Globulin (S) [Mass/Vol] 3.0 g/dL Normal 1.9 - 3.7 g/dL [facility].; [facility], [facility] Glucose [Mass/Vol] 103 mg/dL Abnormal 65 - 99 mg/dL [facility].; [facility], [facility] Potassium [Moles/Vol] 4.3 mmol/L Normal 3.5 - 5.3 mmol/L [facility]; [facility], [facility] Protein [Mass/Vol] 7.5 g/dL Normal 6.1 - 8.1 g/dL [facility]; [facility], [facility]. Sodium [Moles/Vol] 137 mmol/L Normal 135 - 146 mmol/L [facility].; [facility], [facility] Triglyceride [Mass/Vol] 134 mg/dL Normal [facility]; [facility], [facility]. Urea nitrogen [Mass/Vol] 15 mg/dL Normal 7 - 25 mg/dL [facility].; [facility], [facility]. Urea nitrogen/Creatinine [Mass ratio] 17.3 mg/mg Normal 6 - 22 [facility]; [facility] Laboratory - Chemistry and C hemistry - challengeon 02-04-2013 ALT [Catalytic activity/Vol] 29 U/L Normal 9 - 46 U/L [facility].; [facility], [facility] Cholesterol [Mass/Vol] 187 mg/dL Normal 125 - 200 mg/dL [facility], [facility].; [place] [employer]. Cholesterol in HDL [Mass/Vol] 41 mg/dL Normal [facility], [facility].; [place] [employer] Cholesterol in LDL [Mass/Vol] 111 mg/dL Normal [place] [employer], [facility].; [place] [employer] Cholesterol non HDL [Mass/Vol] 146 mg/dL Normal [place] [facility] [place] [employer] Cholesterol.total/C holesterol in HDL [Mass ratio] 4.6 {ratio} Normal [facility], [facility].; [employer] Triglyceride [Mass/Vol] 173 mg/dL Abnormal [place] [employer], [facility].; [place] [employer], [facility]. Laboratory - Chemistry and C hemistry - challengeon 02-05-2012 ALT [Catalytic activity/Vol] 33 U/L Normal 9 - 60 U/L [facility], [facility].; [place] [employer] Cholesterol [Mass/Vol] 189 mg/dL Normal 125 - 200 mg/dL [place] [facility], [facility].; [employer], [employer]. Cholesterol in HDL [Mass/Vol] 40 mg/dL Normal [place] [facility], [facility].; [employer], [employer]. Cholesterol in LDL [Mass/Vol] 117 mg/dL Normal [place] [employer] [facility].; [employer], [employer]. Cholesterol non HDL [Mass/Vol] 149 mg/dL Normal [place] [facility], [facility].; [employer], [employer]. Cholesterol.total/C holesterol in HDL [Mass ratio] 4.7 {ratio} Normal [place] [facility].; [employer], [employer]. Triglyceride [Mass/Vol] 159 mg/dL Abnormal [place] [employer] [facility].; [employer], [facility]. Laboratory - Chemistry and C hemistry - challengeon 02-01-2011 ALT [Catalytic activity/Vol] 28 U/L Normal 9 - 60 U/L [place] [employer], [facility].; [employer] Cholesterol [Mass/Vol] 172 mg/dL Normal 125 - 200 mg/dL [place] [facility], [facility].; [employer], [employer]. Cholesterol in HDL [Mass/Vol] 36 mg/dL Abnormal [place] [employer], [employer]. Cholesterol in LDL [Mass/Vol] 110 mg/dL [facility].; [place] [employer]. Cholesterol.total/C holesterol in HDL [Mass ratio] 4.8 {ratio} Normal [facility].; [facility], [facility]. Triglyceride [Mass/Vol] 132 mg/dL Normal [facility].; [employer], [employer]. Laboratory - Chemistry and C hemistry - challengeon 04-21-2010 ALT [Catalytic activity/Vol] 31 U/L Normal 9 - 60 U/L [facility].; [employer], [facility]. Cholesterol [Mass/Vol] 215 mg/dL Abnormal 125 - 200 mg/dL [facility].; [place] [employer] [facility], [facility]. Cholesterol in HDL [Mass/Vol] 39 mg/dL Abnormal [facility].; [place] [employer], [facility]. Cholesterol in LDL [Mass/Vol] 129 mg/dL Normal [facility].; [place] [employer], [facility]. Cholesterol.total/C holesterol in HDL [Mass ratio] 5.5 {ratio} Abnormal [facility].; [employer]. Triglyceride [Mass/Vol] 236 mg/dL Abnormal [place] [facility].; [place] [facility]. Vital Signs Date Time Vital Sign Value Performing Clinician Facility 01-12-2024 08:06-0500 Body height 180.34 cm Maribell Clement RN [place] [employer] [facility].; [employer] 01-12-2024 08:06-0500 Body mass index (BMI) [Ratio] 34.45 kg/m2 Maribell Clement RN [place] [facility].; [employer] [facility]. 01-12-2024 08:06-0500 Body surface area Derived from formula 2.31 m2 Maribell Clement RN [place] [facility].; [employer] [facility]. 01-12-2024 08:06-0500 Body weight 112.04 kg Maribell Clement RN [place] [employer] [facility].; [employer]. 01-12-2024 08:06-0500 Diastolic blood pressure 82 mm[Hg] [facility].; [employer] [facility]. Comment on above: Patient Position: Sitting; Cuff Location : Left Arm; Cuff Size: Standard 01-12-2024 08:06-0500 Heart rate 93 /min [facility]ell [facility].; [employer]. Comment on above: Pattern: Regular 01-12-2024 08:06-0500 Inhaled oxygen concentration 21 % [facility]ibell Clement [facility].; [employer]. Comment on above: Room air 01-12-2024 08:06-0500 SaO2% (BldA) [Mass fraction] 97 % [facility]ibell [facility].; [place] [employer] [facility]. 01-12-2024 08:06-0500 Systolic blood pressure 129 mm[Hg] Maribell Clement RN [facility].; [employer]. Comment on above: Patient Position: Sitting; Cuff Location : Left Arm; Cuff Size: Standard 04-02-2023 07:57-0500 Body height 180.34 cm Christie Clements MA [facility].; [place] [employer] [facility]. 04-02-2023 07:57-0500 Body mass index (BMI) [Ratio] 33.89 kg/m2 Christie Clements [facility].; [place] [facility]. 04-02-2023 07:57-0500 Body surface area Derived from formula 2.29 m2 Christie Clements MA [facility].; [employer] [facility]. 04-02-2023 07:57-0500 Body weight 110.22 kg Christie Clements MA [facility].; [employer] [facility]. 04-02-2023 07:57-0500 Diastolic blood pressure 84 mm[Hg] Christie Clements MA [facility].; [employer]. Comment on above: Patient Position: Sitting; Cuff Location : Left Arm; Cuff Size: Standard 04-02-2023 07:57-0500 Heart rate 83 /min Christie Clemenst MA [facility].; [employer]. Comment on above: Pattern: Regular 04-02-2023 07:57-0500 Systolic blood pressure 128 mm[Hg] Christie Clements MA [facility], [facility].; [place] [facility] [facility], [employer]. Comment on above: Patient Position: Sitting; Cuff Location : Left Arm; Cuff Size: Standard 01-06-2023 08:07-0500 Body height 180.34 cm Alexus Belcher [facility] [place] [facility] [facility], [employer]. 01-06-2023 08:07-0500 Body mass index (BMI) [Ratio] 33.19 kg/m2 Alexus Belcher [facility] [place] [facility], [employer]. 01-06-2023 08:07-0500 Body surface area Derived from formula 2.27 m2 [facility] Simi [facility], [facility].; [place] [employer] [facility], [employer]. 01-06-2023 08:07-0500 Body weight 107.96 kg Maya Stuckey [facility] [place] [employer], [employer]. 01-06-2023 08:07-0500 Diastolic blood pressure 82 mm[Hg] MayaRody Belcher [facility].; [place] [employer] [facility], [employer]. Comment on above: Patient Position: Sitting; Cuff Location : Left Arm; Cuff Size: Large 01-06-2023 08:07-0500 Heart rate 69 /min MayaRody Belcher [facility] [employer], [employer]. Comment on above: Pattern: Regular 01-06-2023 08:07-0500 Systolic blood pressure 145 mm[Hg] Alexus Belcher [facility], [facility].; [place] [employer] [facility], [employer]. Comment on above: Patient Position: Sitting; Cuff Location : Left Arm; Cuff Size: Large 10-29-2021 07:57-0400 Body height 180.34 cm Alexus Belcher [facility], [facility].; [employer], [employer]. 10-29-2021 07:57-0400 Body mass index (BMI) [Ratio] 31.38 kg/m2 Maya Simi [facility] [employer]. 10-29-2021 07:57-0400 Body surface area Derived from formula 2.22 m2 Alexus Belcher BALER [facility].; [facility], [facility]. 10-29-2021 07:57-0400 Body weight 102.[address] [facility], [facility].; [employer] 10-29-2021 07:57-0400 Diastolic blood pressure 82 mm[Hg] [facility], [facility].; [employer] Comment on above: Patient Position: Sitting; Cuff Location : Left Arm; Cuff Size: Large 10-29-2021 07:57-0400 Heart rate 74 /min Alexus Belcher [facility], [facility].; [place] [employer] Comment on above: Pattern: Regular 10-29-2021 07:57-0400 Systolic blood pressure 115 mm[Hg] Alexus Belcher BALER [facility], [facility].; [employer] Comment on above: Patient Position: Sitting; Cuff Location : Left Arm; Cuff Size: Large 09-26-2021 08:43-0400 Body height 180.34 cm Pebbles Hinton LPN [facility], [facility].; [facility], [facility]. 09-26-2021 08:43-0400 Body mass index (BMI) [Ratio] 31.38 kg/m2 Pebbles Hinton LPN [facility], [facility].; [facility] 09-26-2021 08:43-0400 Body surface area Derived from formula 2.22 m2 Pebbles Hinton LPN [facility], [facility].; [place] [facility], [facility]. 09-26-2021 08:43-0400 Body temperature 97.8 [degF] Pebbles [facility]inton [facility], [facility].; [employer], [employer]. Comment on above: Method: Tympanic 09-26-2021 08:43-0400 Body weight 102.06 kg Pebbles Hinton LPN [facility], [facility].; [facility] 09-26-2021 08:43-0400 Diastolic blood pressure 81 mm[Hg] Pebbles Hinton LPN [facility]Rad[facility].; [place] [employer] [facility]. Comment on above: Patient Position: Sitting; Cuff Location : Left Arm; Cuff Size: Standard 09-26-2021 08:43-0400 Heart rate 62 /min Pebbles Hinton LPN [facility].; [employer]. Comment on above: Pattern: Regular 09-26-2021 08:43-0400 Systolic blood pressure 129 mm[Hg] Pebbles Hinton LPN [facility].; [employer]. Comment on above: Patient Position: Sitting; Cuff Location : Left Arm; Cuff Size: Standard 08-21-2021 15:25-0400 Body height 180.34 cm Maribell Clement RN [facility].; [place] [employer] [facility]. 08-21-2021 15:25-0400 Body mass index (BMI) [Ratio] 30.82 kg/m2 Maribell Clement RN [facility].; [place] [facility]. 08-21-2021 15:25-0400 Body surface area Derived from formula 2.2 m2 Maribell Clement RN [facility].; [place] [facility]. 08-21-2021 15:25-0400 Body temperature 97.9 [degF] Maribell Clement RN [facility].; [employer]. Comment on above: Method: Tympanic 08-21-2021 15:25-0400 Body weight 100.25 kg Maribell Clement RN [facility].; [place] [employer] [facility]. 08-21-2021 15:25-0400 Diastolic blood pressure 62 mm[Hg] Maribell Clement RN [place] [facility].; [employer]. Comment on above: Patient Position: Sitting; Cuff Location : Left Arm; Cuff Size: Standard 08-21-2021 15:25-0400 Heart rate 65 /min Maribell Clement RN [facility].; [employer]. Comment on above: Pattern: Regular 08-21-2021 15:25-0400 Systolic blood pressure 100 mm[Hg] Maribell Clement RN [facility], [facility].; [place] [facility]. Comment on above: Patient Position: Sitting; Cuff Location : Left Arm; Cuff Size: Standard 09-12-2020 08:53-0400 Body height 180.34 cm Marybel Littlejohn LPN [facility], [facility].; [place] [facility], [facility]. 09-12-2020 08:53-0400 Body mass index (BMI) [Ratio] 32.22 kg/m2 Marybel Littlejohn LPN [facility], [facility].; [place] [facility], [facility]. 09-12-2020 08:53-0400 Body surface area Derived from formula 2.24 m2 Marybel Littlejohn LPN [facility], [facility].; [place] [facility], [facility]. 09-12-2020 08:53-0400 Body weight 104.78 kg Marybel Littlejohn LPN [facility], [facility].; [place] [facility], [facility]. 09-12-2020 08:53-0400 Diastolic blood pressure 72 mm[Hg] Marybel Littlejohn LPN [facility], [facility].; [employer], [employer]. Comment on above: Patient Position: Sitting; Cuff Location : Left Arm; Cuff Size: Standard 09-12-2020 08:53-0400 Heart rate 65 /min Marybel Littlejohn LPN [facility], [facility].; [employer], [employer]. Comment on above: Pattern: Regular 09-12-2020 08:53-0400 Systolic blood pressure 113 mm[Hg] Marybel Littlejohn [facility], [facility].; [employer], [employer]. Comment on above: Patient Position: Sitting; Cuff Location : Left Arm; Cuff Size: Standard 07-12-2020 15:40-0400 Body height 180.34 cm Pebbles Hinton LPN [facility], [facility].; [place] [facility]. 07-12-2020 15:40-0400 Body mass index (BMI) [Ratio] 33.33 kg/m2 Pebbles Hinton LPN [facility], [facility].; [place] [facility], [facility]. 07-12-2020 15:40-0400 Body surface area Derived from formula 2.27 m2 Pebbles Hitnon LPN [facility], [facility].; [place] [facility], [facility]. 07-12-2020 15:40-0400 Body weight 108.41 kg Pebbles Hinton LPN [facility], [facility].; [facility], [facility]. 07-12-2020 15:40-0400 Diastolic blood pressure 88 mm[Hg] Pebbles Hinton LPN [facility], [facility].; [place] [employer] [facility], [facility]. Comment on above: Patient Position: Sitting; Cuff Location : Left Arm; Cuff Size: Standard 07-12-2020 15:40-0400 Heart rate 83 /min Pebbles Hinton LPN [facility], [facility].; [place] [facility], [facility]. Comment on above: Pattern: Regular 07-12-2020 15:40-0400 Systolic blood pressure 130 mm[Hg] Pebbles Hinton LPN [facility], [facility].; [facility], [facility]. Comment on above: Patient Position: Sitting; Cuff Location : Left Arm; Cuff Size: Standard 06-21-2020 15:49-0400 Body height 180.34 cm Pebbles Hinton LPN [facility], [facility].; [facility], [facility]. 06-21-2020 15:49-0400 Body mass index (BMI) [Ratio] 33.05 kg/m2 Pebbles Hinton LPN [facility], [facility].; [place] [facility], [facility]. 06-21-2020 15:49-0400 Body surface area Derived from formula 2.27 m2 Pebbles Hinton LPN [facility], [facility].; [place] [employer] [facility], [facility]. 06-21-2020 15:49-0400 Body weight 107.5 kg Pebbles Hinton LPN [facility], [facility].; [place] [facility], [facility]. 06-21-2020 15:49-0400 Diastolic blood pressure 88 mm[Hg] Pebbles Hinton LPN [facility], [facility].; [employer] [employer] [facility], [facility]. Comment on above: Patient Position: Sitting; Cuff Location : Left Arm; Cuff Size: Standard 06-21-2020 15:49-0400 Heart rate 80 /min Pebbles Hinton LPN [facility], [facility].; [employer], [employer]. Comment on above: Pattern: Regular 06-21-2020 15:49-0400 Systolic blood pressure 131 mm[Hg] Pebbles Hinton LPN [facility] [place] [facility], [employer]. Comment on above: Patient Position: Sitting; Cuff Location : Left Arm; Cuff Size: Standard 07-26-2019 15:11-0400 Body height 180.34 cm Alexus Belcher [facility] [place] [facility] 07-26-2019 15:11-0400 Body mass index (BMI) [Ratio] 32.78 kg/m2 Alexus Belcher [facility] [place] [facility] 07-26-2019 15:11-0400 Body surface area Derived from formula 2.26 m2 Maya Simi [facility], [facility].; [place] [facility], [employer]. 07-26-2019 15:11-0400 Body temperature 97.4 [degF] Alexus Belcher [facility] [employer], [employer]. Comment on above: Method: Tympanic 07-26-2019 15:110400 Body weight 106.6 kg Alexus Belcher [facility], [facility].; [place] [facility] 07-26-2019 15:11-0400 Diastolic blood pressure 78 mm[Hg] Alexus Belcher [facility], [facility].; [place] [employer] [facility] Comment on above: Patient Position: Sitting; Cuff Location : Left Arm; Cuff Size: Large 07-26-2019 15:11-0400 Heart rate 79 /min Alexus Belcher BALER [facility] [place] [employer] [facility], [employer]. Comment on above: Pattern: Regular 07-26-2019 15:11-0400 Systolic blood pressure 125 mm[Hg] Alexus Belcher [facility] [employer]. Comment on above: Patient Position: Sitting; Cuff Location : Left Arm; Cuff Size: Large 07-13-2019 15:50-0400 Body height 180.34 cm Pebbles Hinton LPN [facility] [employer], [employer]. 07-13-2019 15:50-0400 Body mass index (BMI) [Ratio] 33.05 kg/m2 Pebbles Hinton BALER [facility].; [facility], [facility]. 07-13-2019 15:50-0400 Body surface area Derived from formula 2.27 m2 Pebbles Hinton LPN [facility], [facility].; [facility] 07-13-2019 15:50-0400 Body weight 107.5 kg Peblbes Hinton LPN [facility] [place] [facility] 07-13-2019 15:50-0400 Diastolic blood pressure 77 mm[Hg] Pebbles Hinton LPN [facility], [facility].; [place] [facility] Comment on above: Patient Position: Sitting; Cuff Location : Left Arm; Cuff Size: Standard 07-13-2019 15:50-0400 Heart rate 73 /min Pebbles Hinton LPN [facility], [facility].; [place] [facility] [facility] Comment on above: Pattern: Regular 07-13-2019 15:50-0400 Systolic blood pressure 125 mm[Hg] Pebbles Hinton LPN [facility], [facility].; [place] [employer] [facility] Comment on above: Patient Position: Sitting; Cuff Location : Left Arm; Cuff Size: Standard 04-12-2019 09:10-0500 Body height 180.[address] [facility], [facility].; [facility], [facility]. 04-12-2019 09:10-0500 Body mass index (BMI) [Ratio] 32.5 kg/m2 Alexus Belcher BALER [facility] [place] [employer] 04-12-2019 09:10-0500 Body surface area Derived from formula 2.25 m2 Alexus Riosuckey BALER [facility], [facility].; [place] [employer] [facility], [facility]. 04-12-2019 09:10-0500 Body temperature 98.3 [degF] Alexus Belcher [facility], [facility].; [place] [employer], [employer]. Comment on above: Method: Tympanic 04-12-2019 09:10-0500 Body weight 105.[address] [facility] [place] [facility] 04-12-2019 09:10-0500 Diastolic blood pressure 107 mm[Hg] Alexus Belcher BALER [facility] [employer], [employer]. Comment on above: Patient Position: Sitting; Cuff Location : Left Arm; Cuff Size: Large 04-12-2019 09:10-0500 Heart rate 79 /min Alexus Belcher BALER [facility] [employer] Comment on above: Pattern: Regular 04-12-2019 09:10-0500 Inhaled oxygen concentration 20 % Alexus Belcher [facility] [employer], [employer]. Comment on above: Room air 04-12-2019 09:10-0500 Inhaled oxygen concentration 21 % Maya Simi [facility] [employer], [employer]. Comment on above: Room air 04-12-2019 09:10-0500 SaO2% (BldA) [Mass fraction] 98 % Maya Simi [facility] [employer], [employer]. 04-12-2019 09:10-0500 Systolic blood pressure 156 mm[Hg] Alexus Belcher [facility] [employer], [employer]. Comment on above: Patient Position: Sitting; Cuff Location : Left Arm; Cuff Size: Large 06-02-2018 15:39-0400 Body height 180.34 cm Heavenly Guerrero PA-C Work Phone: [facility] [employer], [employer].; [employer]. 06-02-2018 15:39-0400 Body mass index (BMI) [Ratio] 32.08 kg/m2 Heavenly Guerrero PA-C Work Phone: [employer]. 06-02-2018 15:39-0400 Body surface area Derived from formula 2.24 m2 Heavenly Guerrero PA-C Work Phone: [employer].; [employer]. 06-02-2018 15:39-0400 Body weight 104.33 kg Heavenly Guerrero PA-C Work Phone: [employer].; [employer]. 06-02-2018 15:39-0400 Diastolic blood pressure 78 mm[Hg] Heavenlyakash Guerrero PA-C Work Phone: [employer].; [employer]. Comment on above: Patient Position: Sitting; Cuff Location : Left Arm; Cuff Size: Standard 06-02-2018 15:39-0400 Heart rate 78 /min Heavenly Guerrero PA-C Work Phone: [employer].; [employer]. Comment on above: Pattern: Regular 06-02-2018 15:39-0400 Systolic blood pressure 136 mm[Hg] Heavenly Guerrero PA-C Work Phone: [employer].; [employer]. Comment on above: Patient Position: Sitting; Cuff Location : Left Arm; Cuff Size: Standard 05-21-2016 15:49-0400 Body height 180.34 cm Cortney K Mutersbaugh BALER [employer], [employer]. 05-21-2016 15:49-0400 Body mass index (BMI) [Ratio] 31.24 kg/m2 Cortney K Mutersbaugh BALER [employer], [employer].; [employer]. 05-21-2016 15:49-0400 Body surface area Derived from formula 2.21 m2 Cortney K Mutersbaugh BALER [employer]. 05-21-2016 15:49-0400 Body weight 101.61 kg Cortney K Mutersbaugh BALER [employer], [employer].; [employer]. 05-21-2016 15:49-0400 Diastolic blood pressure 76 mm[Hg] Cortney K Mutersbaugh BALER [employer], [employer].; [employer]. Comment on above: Patient Position: Sitting; Cuff Location : Left Arm; Cuff Size: Standard 05-21-2016 15:49-0400 Heart rate 93 /min Cortney K Mutersbaugh BALER [employer], [employer].; [employer]. Comment on above: Pattern: Regular 05-21-2016 15:49-0400 Systolic blood pressure 110 mm[Hg] Cortney Perez [facility], Inc.; [employer], [employer]. Comment on above: Patient Position: Sitting; Cuff Location : Left Arm; Cuff Size: Standard 11-10-2015 15:49-0400 Body height 180.34 cm Trinyagustin Shipley [facility], [facility].; [employer], [employer]. 11-10-2015 15:49-0400 Body mass index (BMI) [Ratio] 30.54 kg/m2 Triny Vaughn Shipley [facility], [facility].; [employer], [employer]. 11-10-2015 15:49-0400 Body surface area Derived from formula 2.19 m2 Triny Shipley [facility], Inc.; [employer], [employer]. 11-10-2015 15:49-0400 Body weight 99.34 kg Triny Shipley [facility], Inc.; [employer], [employer]. 11-10-2015 15:49-0400 Diastolic blood pressure 79 mm[Hg] [facility]agustin Shipley [facility], [facility].; [employer]. Comment on above: Patient Position: Sitting; Cuff Location : Right Arm; Cuff Size: Large 11-10-2015 15:49-0400 Heart rate 71 /min Trinyagustin Shipley [facility], [facility].; [employer], [employer]. Comment on above: Pattern: Regular 11-10-2015 15:49-0400 Systolic blood pressure 129 mm[Hg] Triny Vaughn Shipley [facility], [facility].; [employer]. Comment on above: Patient Position: Sitting; Cuff Location : Right Arm; Cuff Size: Large 05-25-2015 15:290400 Body height 180.34 cm Breezy Mantilla MD Work Phone: [employer].; [employer], [employer]. 05-25-2015 15:29040 Body mass index (BMI) [Ratio] 30.4 kg/m2 Breezy Mantilla MD Work Phone: [employer].; [employer]. 05-25-2015 15:29-0400 Body surface area Derived from formula 2.19 m2 Breezy Mantilla MD Work Phone: [employer].; [employer]. 05-25-2015 15:29-0400 Body weight 98.88 kg Breezy Mantilla MD Work Phone: [employer].; [employer]. 05-25-2015 15:29-0400 Diastolic blood pressure 86 mm[Hg] Breezy Mantilla MD Work Phone: [employer].; [employer]. Comment on above: Patient Position: Sitting; Cuff Location : Left Arm; Cuff Size: Standard 05-25-2015 15:29-0400 Heart rate 83 /min Breezy Mantilla MD Work Phone: [employer].; [employer]. Comment on above: Pattern: Regular 05-25-2015 15:29-0400 Systolic blood pressure 130 mm[Hg] Breezy Mantilla MD Work Phone: [employer].; [employer]. Comment on above: Patient Position: Sitting; Cuff Location : Left Arm; Cuff Size: Standard 03-22-2014 16:28-0500 Body height 180.34 cm Triny Shipley LPN [employer], [employer].; [employer] 03-22-2014 16:28-0500 Body mass index (BMI) [Ratio] 28.73 kg/m2 Triny Shipley LPN [employer] 03-22-2014 16:28-0500 Body surface area Derived from formula 2.14 m2 Triny Shipley LPN [employer]. 03-22-2014 16:28-0500 Body weight 93.44 kg Triny Shipley LPN [employer], [employer]. 03-22-2014 16:28-0500 Diastolic blood pressure 84 mm[Hg] Triny Shipley LPN [employer].; [employer]. Comment on above: Patient Position: Sitting; Cuff Location : Right Arm; Cuff Size: Standard 03-22-2014 16:28-0500 Heart rate 79 /min Triny Vaughn Shipley LPN [facility], [facility].; [employer]. Comment on above: Pattern: Regular 03-22-2014 16:28-0500 Systolic blood pressure 124 mm[Hg] Triny Vaughn Shipley BALER [facility], [facility].; [employer]. Comment on above: Patient Position: Sitting; Cuff Location : Right Arm; Cuff Size: Standard 09-14-2013 15:00-0400 Body height 180.34 cm Triny Vaughn Shipley [facility], [facility].; [employer], [employer]. 09-14-2013 15:00-0400 Body mass index (BMI) [Ratio] 28.03 kg/m2 Triny Vaughn Shipley BALER [place] [facility], [facility].; [employer] 09-14-2013 15:00-0400 Body surface area Derived from formula 2.11 m2 Triny Shipley [facility], [facility].; [employer], [employer]. 09-14-2013 15:00-0400 Body temperature 97.6 [degF] Triny Vaughn Shipley BALER [employer], [employer].; [employer], [employer]. Comment on above: Method: Tympanic 09-14-2013 15:00-0400 Body weight 91.17 kg Triny Shipley BALER [place] [facility], [facility].; [employer] 09-14-2013 15:00-0400 Diastolic blood pressure 78 mm[Hg] Triny Vaughn Shipley BALER [employer] [facility], [facility].; [employer]. Comment on above: Patient Position: Sitting; Cuff Location : Left Arm; Cuff Size: Standard 09-14-2013 15:00-0400 Heart rate 72 /min Triny Vaughn Shipley LPN [place] [facility], [facility].; [employer]. Comment on above: Pattern: Regular 09-14-2013 15:00-0400 Systolic blood pressure 118 mm[Hg] Triny Vaughn Shipley BALER [employer], [employer].; [employer]. Comment on above: Patient Position: Sitting; Cuff Location : Left Arm; Cuff Size: Standard 02-15-2013 15:49-0500 Body height 180.34 cm Breezy Mantilla MD Work Phone: [place] [employer].; [employer]. 02-15-2013 15:49-0500 Body mass index (BMI) [Ratio] 31.57 kg/m2 Breezy Mantilla MD Work Phone: [employer].; [employer]. 02-15-2013 15:49-0500 Body surface area Derived from formula 2.22 m2 Breezy Mantilla MD Work Phone: [employer].; [employer]. 02-15-2013 15:49-0500 Body weight 102.68 kg Breezy Mantilla MD Work Phone: [employer].; [employer]. 02-15-2013 15:49-0500 Diastolic blood pressure 84 mm[Hg] Breezy Mantilla MD Work Phone: [employer].; [employer]. Comment on above: Patient Position: Sitting; Cuff Location : Left Arm; Cuff Size: Standard 02-15-2013 15:49-0500 Heart rate 81 /min Breezy Mantilla MD Work Phone: [place] [employer].; [employer]. Comment on above: Pattern: Regular 02-15-2013 15:49-0500 Systolic blood pressure 124 mm[Hg] Breezy Mantilla MD Work Phone: [employer].; [employer]. Comment on above: Patient Position: Sitting; Cuff Location : Left Arm; Cuff Size: Standard 02-18-2012 16:19-0500 Body height 180.34 cm Triny Shipley LPN [employer].; [employer]. 02-18-2012 16:19-0500 Body mass index (BMI) [Ratio] 31.52 kg/m2 Triny Shipley LPN [employer].; [employer]. 02-18-2012 16:19-0500 Body surface area Derived from formula 2.22 m2 Triny Vaughn Shipley BALER [facility], [facility].; [employer], [employer] 02-18-2012 16:19-0500 Body weight 102.51 kg Triny Vaughn Shipley LPN [facility], [facility].; [employer], [employer] 02-18-2012 16:19-0500 Diastolic blood pressure 85 mm[Hg] Triny Vaughn Shipley LPN [facility], [facility].; [employer], [employer] Comment on above: Patient Position: Sitting; Cuff Location : Left Arm; Cuff Size: Standard 02-18-2012 16:19-0500 Heart rate 99 /min Trinyagustin Shipley LPN [facility], [facility].; [employer], [employer] Comment on above: Pattern: Regular 02-18-2012 16:19-0500 Systolic blood pressure 130 mm[Hg] Triny Shipley BALER [facility], [facility].; [employer], [employer] Comment on above: Patient Position: Sitting; Cuff Location : Left Arm; Cuff Size: Standard 02-12-2011 17:29-0500 Body height 180.34 cm Tonia C Gavin BALER [place] [facility], [facility].; [employer] 02-12-2011 17:29-0500 Body mass index (BMI) [Ratio] 31.35 kg/m2 Tonia C Gavin BALER [employer] [facility], [facility].; [employer] 02-12-2011 17:29-0500 Body surface area Derived from formula 2.22 m2 Tonia C [place] BALER [place] [facility], [facility].; [employer] 02-12-2011 17:29-0500 Body weight 101.97 kg Tonia C [place] BALER [employer] [facility], [facility].; [employer] 02-12-2011 17:29-0500 Diastolic blood pressure 70 mm[Hg] Tonia C Gavin BALER [employer] [facility], [facility].; [employer] Comment on above: Patient Position: Sitting; Cuff Location : Left Arm; Cuff Size: Large 02-12-2011 17:29-0500 Heart rate 81 /min Tonia C Gavin BALER [employer].; [employer]. Comment on above: Pattern: Regular 02-12-2011 17:29-0500 Systolic blood pressure 110 mm[Hg] Tonia C Gavin BALER [employer] [facility], [facility].; [employer]. Comment on above: Patient Position: Sitting; Cuff Location : Left Arm; Cuff Size: Large 05-08-2010 16:53-0400 Body height 179.07 cm Tonia C [place] BALER [employer] [facility], [facility].; [employer], [employer] 05-08-2010 16:53-0400 Body mass index (BMI) [Ratio] 30.78 kg/m2 Tonia C Gavin BALER [employer] [facility], [facility].; [employer], [employer]. 05-08-2010 16:53-0400 Body surface area Derived from formula 2.17 m2 Tonia C Gavin BALER [employer] [facility], [facility].; [employer], [employer]. 05-08-2010 16:53-0400 Body weight 98.7 kg [place]onia [place]ER [employer], [employer]. 05-08-2010 16:53-0400 Diastolic blood pressure 71 mm[Hg] Tonia C Gavin BALER [employer]. Comment on above: Patient Position: Sitting; Cuff Location : Left Arm; Cuff Size: Large 05-08-2010 16:53-0400 Heart rate 83 /min Tonia Reddy GraceGavin BALER [employer]. Comment on above: Pattern: Regular 05-08-2010 16:53-0400 Systolic blood pressure 110 mm[Hg] Tonia C [place] BALER [employer]. Comment on above: Patient Position: Sitting; Cuff Location : Left Arm; Cuff Size: Large Encounters Encounter Date Encounter Type Care Provider Facility Start: 03-26-2024 End: 03-26-2024 ambulatory Heavenly Guerrero Facility:[facility] Start: 01-12-2024 End: 01-12-2024 Patient encounter procedure Heavenly Guerrero PA-C Work Phone: [place] [facility] Start: 01-12-2024 End: 01-12-2024 Physical examination Heavenly Guerrero [facility]-C [facility]; [facility] Start: 01-12-2024 Physical examination [facility] Start: 01-08-2024 End: 01-08-2024 ambulatory HEAVENLY PAC GUERRERO [facility] Start: 01-05-2024 End: 01-05-2024 Medication Heavenly Guerrero PA-C Work [facility] Start: 01-02-2024 End: 01-02-2024 Orders Heavenly Guerrero PA-C [facility] Start: 09-15-2023 End: 09-15-2023 ambulatory Triny [place] Facility:[facility] Start: 04-02-2023 End: 04-02-2023 Office outpatient visit 10 minutes Heavenly Guerrero PA-C Work Phone: [facility] Start: 03-04-2023 End: 03-04-2023 ambulatory [facility] Work Phone: Start: 03-04-2023 End: 03-04-2023 Patient encounter procedure [facility]-Laboratory, Specimen Work Phone: Start: 02-12-2023 End: 02-12-2023 Patient encounter procedure Heavenly Guerrero PA-C Work Phone: [facility] Start: 02-09-2023 End: 02-09-2023 ambulatory HEAVENLY PAC GUERRERO [facility] Start: 01-06-2023 End: 01-06-2023 Patient encounter status Heavenly Guerrero PA-C Work Phone: [employer]; [employer] Start: 01-06-2023 End: 01-06-2023 Periodic preventive med est patient 40-64yrs Heavenly Guerrero PA-C Work Phone: [employer] Start: 12-09-2022 End: 12-09-2022 Orders Heavenly Guerrero PA-C Work Phone: [employer] Start: 10-29-2021 End: 10-29-2021 Office outpatient visit 15 minutes Heavenly Guerrero PA-C Work Phone: [employer] Start: 09-26-2021 End: 09-26-2021 Office outpatient visit 25 minutes Heavenly Guerrero PA-C Work Phone: [employer] Start: 08-21-2021 End: 08-21-2021 Office outpatient visit 15 minutes Heavenly Guerrero PA-C Work Phone: [employer] Start: 09-12-2020 End: 09-12-2020 Periodic preventive med est patient 40-64yrs Heavenly Guerrero PA-C Work Phone: [employer] Start: 09-12-2020 End: 09-12-2020 Physical examination Heavenly Guerrero PA-C Work Phone: [employer]; [employer] Start: 09-05-2020 End: 09-05-2020 Orders Heavenly Guerrero PA-C Work Phone: [employer] Start: 07-12-2020 End: 07-13-2020 Office outpatient visit 15 minutes Heavenly Guerrero PA-C Work Phone: [employer] Start: 06-28-2020 End: 06-30-2020 Evaluation finding Heavenly Guerrero PA-C Work Phone: [employer]; [employer]. Start: 06-28-2020 End: 06-30-2020 Orders Heavenly Guerrero PA-C Work Phone: [employer] Start: 06-28-2020 End: 06-30-2020 Orders Heavenly Guerrero PA-C Work Phone: [employer] Start: 06-21-2020 End: 06-21-2020 Office outpatient visit 15 minutes Heavenly Guerrero PA-C Work Phone: [employer] Start: 07-26-2019 End: 07-26-2019 Office outpatient visit 15 minutes Heaevnly Guerrero PA-C Work Phone: [employer]. Start: 07-13-2019 End: 07-13-2019 Office outpatient visit 15 minutes Heavenly Guerrero PA-C Work Phone: [employer] Start: 07-06-2019 End: 07-06-2019 Orders Heavenly Guerrero PA-C Work Phone: [employer] Start: 04-12-2019 End: 04-12-2019 Office outpatient visit 15 minutes Heavenly Guerrero PA-C Work Phone: [employer] Start: 06-02-2018 End: 06-02-2018 Office outpatient visit 25 minutes Heavenly Guerrero PA-C Work Phone: [employer] Start: 05-01-2018 End: 05-01-2018 Orders Heavenly Guerrero PA-C Work Phone: [employer] Start: 07-12-2017 End: 07-15-2017 Orders Heavenly Guerrero PA-C Work Phone: [employer] Start: 06-02-2017 End: 06-03-2017 Orders Heavenly Guerrero PA-C Work Phone: [employer] Start: 05-21-2016 End: 05-21-2016 Patient encounter procedure Heavenly Guerrero PA-C Work Phone: [employer] Start: 05-18-2016 End: 05-21-2016 Orders Heavenly Guerrero PA-C Work Phone: [employer] Start: 11-10-2015 End: 11-12-2015 Patient encounter procedure Heavenly Guerrero PA-C Work Phone: [employer] Start: 05-25-2015 End: 05-25-2015 Office outpatient visit 15 minutes Heavenly Guerrero PA-C Work Phone: [employer]. Start: 05-01-2015 End: 05-01-2015 Orders Heavenly Guerrero PA-C Work Phone: [employer]. Start: 03-22-2014 End: 03-22-2014 Office outpatient visit 15 minutes Heavenly Guerrero PA-C Work Phone: [employer]. Start: 03-07-2014 End: 03-07-2014 Orders Heavenly Guerrero PA-C Work Phone: [employer] Start: 09-14-2013 End: 09-14-2013 Office outpatient visit 15 minutes Heavenly Guerrero PA-C Work Phone: [employer] Start: 02-15-2013 End: 02-15-2013 Patient encounter procedure Heavenly Guerrero PA-C Work Phone: [employer] Start: 02-04-2013 End: 02-04-2013 Orders Heavenly Guerrero PA-C Work Phone: [employer] Start: 02-18-2012 End: 02-19-2012 Patient encounter procedure Heavenly Guerrero PA-C Work Phone: [employer]. Start: 02-17-2012 End: 02-17-2012 Historical Summary Heavenly Guerrero PA-C Work Phone: [employer] Start: 02-05-2012 End: 02-05-2012 Orders Heavenly Guerrero PA-C Work Phone: [employer] Start: 09-06-2011 End: 09-10-2011 Medication Heavenly Guerrero PA-C Work Phone: [employer] Start: 02-12-2011 End: 02-13-2011 Patient encounter procedure Heavenly [facility]errero [facility]-C [facility] Start: 02-01-2011 End: 02-01-2011 Orders Heavenly Guerrero PA-C [facility] Start: 05-08-2010 End: 05-09-2010 Patient encounter procedure Heavenly Guerrero PA-C [facility] Start: 04-17-2010 End: 04-17-2010 Orders Heavenly Bean PA-C Work [facility] Evaluation finding Maribell Hebert RN [facility].; [facility] Follow-up encounter Heavenly moffett PA-C Work Phone: [facility]; [facility] Follow-up encounter [facility].; [facility] Follow-up encounter Maribell mayo [facility]; [facility] Physical [facility] Maribell Clement RN [facility].; [facility] Physical examination Heavenly ball PA-C Work Phone: [facility]; [facility] Procedures Date Procedure Procedure Detail Performing Clinician Start: 01-12-2024 End: 01-12-2024 Adv care pln/ no alt dcsn mkr docd or refusal Heavenly Guerrero PA-C Work Phone: Start: 01-12-2024 End: 01-12-2024 Depression screening Heavenly Guerrero PA-C Work Phone: Start: 01-12-2024 End: 01-12-2024 Falls risk assessment documented Heavenly Guerrero PA-C Work Phone: Start: 01-12-2024 End: 01-12-2024 Initial preventive exam Heavenly Guerrero P A-C Work Phone: Start: 01-12-2024 End: 01-12-2024 No Known Past Surgical History Maribell Clement RN Start: 01-12-2024 End: 01-12-2024 Pos clin depres scrn f/u doc Heavenly Lock Guerrero PA-C Work Phone: Start: 01-12-2024 End: 01-12-2024 Pt falls assess docd w/o fall/injury past year Heavenly Lock Guerrero PA-C Work Phone: Start: 01-12-2024 End: 01-12-2024 Scr dep neg, no plan reqd Heavenly J Guerrero PA-C Work Phone: Start: 01-12-2024 End: 01-12-2024 Screening test visual acuity quantitative bilat Heavenly Lock Guerrero PA-C Work Phone: Start: 01-08-2024 End: 01-08-2024 Lab findings surveillance Maribell amaya RN Comment on above: Results:. CMP--102 Start: 01-08-2024 End: 01-08-2024 Lipid panel Maribell Clement RN Start: 01-08-2024 End: 01-08-2024 PSA screening Maribell Clement RN Comment on above: Performed By: #### [id number] #### [place] [id number] Results:. 5.16 Start: 02-09-2023 PSA screening HEAVENLY BALL Comment on above: Performed By: #### [id number] #### [place] [id number] Start: 01-06-2023 End: 01-06-2023 Depression screening Heavenly Guerrero PA-C Work Phone: Start: 01-06-2023 End: 01-06-2023 Scr dep neg, no plan reqd Heavenly Lock Guerrero PA-C Work Phone: Start: 12-29-2022 End: 12-29-2022 Lab findings surveillance Amya Stuc snell BALER Comment on above: CMP--92 Start: 12-29-2022 End: 12-29-2022 Lipid panel Alexus Belcher LP N Start: 12-29-2022 End: 12-29-2022 Prostate specific antigen measurement Alexus Belcher BALER Comment on above: 4.66 Start: 09-12-2020 End: 09-12-2020 Depression screening Heavenly Guerrero PA-C Work Phone: Start: 09-12-2020 End: 09-12-2020 Scr dep neg, no plan reqd Heavenly Guerrero PA-C Work Phone: Start: 06-28-2020 End: 07-05-2020 Ct abdomen & pelvis w/contrast material Breezy Mantilla MD Work Phone: Start: 05-08-2010 End: 05-08-2010 Removal skn tags drafter directional survey fibrq tags any area upw/15 Breezy Mantilla MD Work Phone: Plan of Treatment Date Care Activity Detail Author Start: 01-12-2024 Patient encounter procedure Medical; PHYSICAL - physical [employer]. Start: 12-Jan-2024 09:50-05:00 WALT Guerrero Appointment Request [employer]. Start: 01-02-2024 Assay of prostate specific antigen total PSA TOTAL (PROSTATE SPECIFIC ANTIGEN) (53600) Start: 02-Jan-2024 Request [employer].; [employer] Start: 01-02-2024 Comprehensive metabolic panel CMP w/ GFR* (06071) Start: 02-Jan-2024 Request [employer] Start: 01-02-2024 Lipid panel LIPID PANEL (38727) Start: 02-Jan-2024 Request [employer].; [employer] Start: 01-06-2023 Oncology colorectal screening luba 10 dna markrs COLOGUARD COLON CANCER SCREENING USING STOOL DNA AT POINT OF CARE (52986) Start: 06-Jan-2023 Intent [employer] Start: 05-08-2010 Patient Education Health Maintenance: Controlling Cholesterol: cholesterol Indication: Hyperlipidemia (Renamed from HLD (hyperlipidemia)) Start: 08-May-2010 Instruction Type: Patient Education [place] [employer], [employer]. Immunizations Immunization Date Immunization Notes Care Provider Raven narinderjc 06-02-2018 tetanus toxoid, redu barbara diphtheria toxoid, and acellular pertussis vaccine, adsorbed Heavenly Guerrero PA-C Work [facility]: [facility]; [employer]. Comment on above: Site: Right DeltoidV IS Given: * Tdap (Tetanus, Diphtheria, Pertussis) (04/05/14) Payers Date Payer Category Payer Medicare [id number] 2023 Private Health Insurance [facility] [id number] 2023 Self-pay 1960 Unknown [id number] 1960 Unknown [id number] Private Health Insurance [facility] [id number] Unknown Unknown [id number] Unknown [id number] Social History Date Type Detail Facility Alcohol Use: Alcohol Use: ; None. [employer] Tobacco Use: Tobacco Use: ; N ever smoker. [employer].; [employer] Start: 1960 Male [facility] Never smoked tobacco [employer].; [employer] Work Phone: Caffeine Use [facility]affeine Use [facility].; [employer] Evaluation note Note Date & Type Note Facility Evaluation note No assessment information availa [facility] Work Phone: Summary Purpose Family History Family history Status:Active Comments:neurofi bromatosis Family history Status:Active Comments:neurofi bromatosis Family history Status:Active Comments:neurofi bromatosis Family history Status:Active Comments:neurofi bromatosis Family history Status:Active Comments:neurofi bromatosis Family history Status:Active Comments:neurofi bromatosis Family history Status:Active Comments:neurofi bromatosis Family history Status:Active Comments:neurofi bromatosis Family history Status:Active Comments:neurofi bromatosis Family history Status:Active Comments:neurofi bromatosis Family history Status:Active Comments:neurofi bromatosis Family history Status:Active Comments:Son. hoffman urofibromatosis Family history Status:Active Comments:Son. hoffman urofibromatosis Family history Status:Active Comments:Son. hoffman urofibromatosis Family history Status:Active Comments:Son. hoffman urofibromatosis Family history Status:Active Comments:Son. hoffman urofibromatosis Advance Directives No Advanced Directives Records FoundNo Advanced Directives Records FoundNo Advanced Directives Records Found Chief Complaint and Reason for Visit Chief Complaint PROSTATE BIOPSY Additional Source Comments (unrecognized sect ion and content) No Status Records FoundNo Status Records FoundNo Status Records Found INFORMATION SOURCE (unrecogn ized section and content) DATE CREATED AUTHOR 10/03/2021 [facility] DATE CREATED AUTHOR AUTHOR'S ORGANIZ ATION 01/10/2024 [facility] DATE CREATED AUTHOR AUTHOR'S ORGANIZ ATION 04/10/2024 [facility] Care Teams (unrecognized sec tion and content) Team Status: Active Member Role Status Dates ERIS Lopez Primary Care Provider Active Team Status: Inactive Member Role Status Dates ERIS Lopez Primary Care Provider Active Dr. Víctor Zepeda MD Attending Provider, Referr ing Provider Active Goals (unrecognized section and content) Goals may be documented in a n alternate section FOR RECORDS PERTAINING TO PATIENTS WHO ARE OR HAVE BEEN ENROLLED IN A CHEMICAL DEPENDENCY/SUBSTANCEABUSE PROGRAM, SOME INFORMATION MAY BE OMITTED. This clinical summary was aggregated from multiple sources. Caution should be exercised in using it in the provision of clinical care. This summary normalizes information from multiple sources, and as a consequence, information in this document may materially change the coding, format and clinical context of patient data. In addition, data may be omitted in some cases. CLINICAL DECISIONS SHOULD BE BASED ON THE PRIMARY CLINICAL RECORDS. [facility] [employer] [facility] provides no warranty or guarantee of the accuracy or completeness of information in this document.
[2024-10-20 08:56] LABS: PSA,Total- Diagnostic 4.84 ng/mL (0.00-4.00)
== END | disposition home or self-care (01) ==
LOC: LAB 07:38
PROVIDERS: Referring Provider Urology; Visit Provider Urology
DX: C61 Malignant neoplasm of prostate (principal)
CPT/HCPCS: 36415; 84153